=== PATIENT | male | born 1990 | race African-American/Black ===

== ENCOUNTER 2017-02-11 11:36 | Day surgery (SDC) | payer BC ==
--- NOTE | ~2017-02-11 | OP ---
Record Of Operation [facility] [address] [place]. [address] NAME: LILIA RICHARDS : 88 STATUS : [facility]#: [id number] AGE: 26 ADM/REG DATE : 02/11/17 MR#: [id number] REPORT SERV DATE: 02/11/17 DICTATED BY: NANDO NJ DATE: 02/11/17 REPORT STATUS : Draft TRANSCRIBED BY: MODL DATE: 02/11/17 DATE OF PROCEDURE: 02/11/2017 PREOPERATIVE DIAGNOSES: Left testicular mass. POSTOPERATIVE DIAGNOSIS: Left testicular mass. PROCEDURE PERFORMED: Left radical orchiectomy. SURGEON: Nando Nj MD. FACING SLITTER: Reff. BLOOD LOSS: Less than 5 mL. SPECIMEN: Left testicle with spermatic cord. COMPLICATIONS: None. INDICATIONS: Mr. Richards is a 26-year-old with a slowly enlarging left testicular mass on ultrasound. This is solid [address] of the neck, chest, abdomen, and pelvis shows no evidence of metastatic disease. LDH is roughly twice the upper limit of normal. Beta HCG and AFP are both normal. 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 TECHNIQUE: Informed consent was obtained. He received Ancef preoperatively. He was brought to the operating room, general endotracheal anesthesia was administered. Genitals and perineum were shaved, prepped and draped, and in the supine position, a 4 cm left inguinal incision was made. The external oblique fascia was identified. It was elevated off the cord structures with blunt dissection and external oblique fascia was divided sharply. Spermatic cord was circumferentially mobilized. It was ligated with a Reece. Next, the distal attachments entering the scrotum were divided with Bovie and blunt dissection. The enlarged left testicle was delivered into the incision. Gubernacular attachments were divided. Once the testicle was entirely freed, I doubly ligated the spermatic cord at the level of the internal ring, zero silk was utilized for this. The specimen was amputated and sent for pathologic analysis. The wound was irrigated. Hemostasis again was confirmed. I reapproximated the external oblique fascia with interrupted 2-0 Vicryl. Wound was irrigated. Block was performed with 8 mL of 0.5% Marcaine. The Maxwell's was closed with a running 3-0 Vicryl. The skin was closed with a subcuticular Monocryl. He will follow up in 14 days. He has some minimal adenopathy in the left upper neck. This will need to be biopsied or followed clinically. LDH will need to be redrawn in 2 to 4 weeks. NATHANIEL/GIORGIO Record Of [address] [place] [place] [address] NAME: LILIA RICHARDS : 88 STATUS : [facility] PAT#: [id number] AGE: 26 ADM/REG DATE : 02/11/17 MR#: [id number] REPORT SERV DATE: 02/11/17 DICTATED BY: NANDO NJ DATE: 02/11/17 REPORT STATUS : Draft TRANSCRIBED BY: GIORGIO DATE: 02/11/17 Nando Nj M.D. / [id number] CC: Samy Gil M.D. Mark S Womack IV, M.D.
== END 2017-02-11 19:05 | disposition home or self-care (01) ==
LOC: SDC 11:36
PROVIDERS: Urology
PROC: 0VBB0ZZ Excision of Left Testis, Open Approach (ICD-10-PCS; principal; 2017-02-11 12:45)
DX: C62.92 Malignant neoplasm of left testis, unspecified whether descended or undescended (principal); F17.210 Nicotine dependence, cigarettes, uncomplicated
CPT/HCPCS: 82962; 88309; A9270-GY; J0690; J1170; J1885; J2250; J2405; J3010